=== PATIENT | male | born 1930 | race Caucasian/White ===

== ENCOUNTER 2017-02-14 16:42 | Emergency (ER) | payer MEDICARE, OTHER ==
[~2017-02-14] VITALS: Ht 167.6 cm; Wt 79.5 kg
[~2017-02-14 16:42] MED LIST: ARICEPT10 MG PO; ASPIRIN 81M81 MG/TA2 PO; CIPRO 500MG TA500 MG PO; FLAGYL500 MG PO; FLOMAX 0.40.4 MG/CAP PO; FOLIC ACID 11 MG/TA1 PO; GLUCOTROL 5M5 MG/TAB PO; LEVEMIR100 U/ML SQ; NAMENDA 10MG TA10 MG PO; NEURONTIN300 MG/CAP PO; NORVASC 10MG10 MG PO; OMNICEF 300MG300 MG PO; PHENERGAN 25 TA25 MG PO; PRINIVIL5 MG PO; SYNTHROID0.05 MG/TA PO; URECHOLINE 25MG25 MG PO; VITAMIN B-1000 MCG/T PO; VITAMIN D1000 IU PO; ZOLOFT 50MG50 MG PO
[2017-02-14 16:44] VITALS: BP 144/55; TEMP 97.7
[2017-02-14 17:35] LABS: BASO # 0.1 (0.0-0.2); BASO % 0.7 % (0.0-2.0); EOS # 0.2 (0.0-0.7); GRAN # 5.1 (1.4-6.5); LYMPH # 1.1 (1.2-3.4); LYMPH % 15.8 % (20.0-51.0); MEAN CELL VOLUME 84 fl (80.0-100.0); MEAN CORPUSCULAR HGB CONC 33 g/dl (33.0-37.0); MEAN PLATELET VOLUME 11.9 fl (7.4-10.4); MONO # 0.7 (0.1-0.6); MONO % 9.1 % (1.7-9.3); PLATELET COUNT 173 K/mm3 (130-400); RED BLOOD COUNT 3.58 M/mm3 (4.20-5.60); REDCELL DISTRIBUTION WIDTH-CV 14.4 % (11.5-14.5); WHITE BLOOD COUNT 7.2 K/mm3 (4.8-10.8)
[2017-02-14 17:36] LABS: HEMOGLOBIN 9.8 g/dl (13.5-18.0); MEAN CORPUSCULAR HEMOGLOBIN 27 pg (27.0-31.0)
[2017-02-14 17:49] LABS: ADJUSTED CALCIUM 9.3 mg/dL (8.4-10.2); ALBUMIN 3.1 gm/dL (3.5-5.0); BILIRUBIN,TOTAL 0.7 mg/dL (0.0-1.0); CALCIUM 8.6 mg/dL (8.4-10.2); CREATININE, serum 1.2 mg/dL (0.66-1.25); POTASSIUM 4.6 mmol/L (3.4-5.0); TOTAL PROTEIN 6.3 gm/dL (6.4-8.2)
[2017-02-14 18:19] LABS: THYROID STIMULATING HORMONE 3.07 uIU/mL (0.465-4.680)
[2017-02-14 19:10] VITALS: PULSE 74
[2017-03-21] MEDS ORDERED: MACROBID 1100 MG/CAP PO (10:33)
[2017-07-28] MEDS ORDERED: PREDNISONE10 MG PO (11:45)
[2017-07-28] MEDS ORDERED: DOXYCYCLINE 10100 MG PO (11:45)
[2017-07-28] MEDS ORDERED: FERROUS SU325 MG/TAB PO (11:49)
[2017-07-28] MEDS ORDERED: FLOMAX 0.40.4 MG/CAP PO (11:50)
[2017-07-28] MEDS ORDERED: ULTRAM 50MG TAB50 MG PO (18:10)
[2017-07-28] MEDS ORDERED: NOVOLOGMIX70/30 SQ ×2 (18:34→18:37)
== END 2017-02-14 19:02 | disposition home or self-care (01) ==
LOC: COL.ER 16:42
PROVIDERS: Family Medicine
DX: L89.619 Pressure ulcer of right heel, unspecified stage (principal); L89.319 Pressure ulcer of right buttock, unspecified stage; G62.9 Polyneuropathy, unspecified; L97.829 Non-pressure chronic ulcer of other part of left lower leg with unspecified severity; L97.819 Non-pressure chronic ulcer of other part of right lower leg with unspecified severity; D64.9 Anemia, unspecified; E11.9 Type 2 diabetes mellitus without complications; Z79.84 Long term (current) use of oral hypoglycemic drugs; R60.0 Localized edema

== ENCOUNTER → 2017-03-02 | Outpatient (CLI) | payer MEDICARE, OTHER ==
[~2017-03-02] MED LIST changes: +BACTRIM DS 8001 TAB PO; +Ciprofloxacin PO; +DOXYCYCLINE 10100 MG PO; +FERROUS SU325 MG/TAB PO; +LEVAQUIN 5500 MG/TA1 PO; +MACROBID 1100 MG/CAP PO; +MYCOSTATIN100000 U/G TP; +NOVOLOG FLEX100 U/ML SQ; +NOVOLOGMIX70/30 SQ; +PREDNISONE10 MG PO; +ULTRAM 50MG TAB50 MG PO; +ZOLOFT 25MG25 MG PO
== END ==
LOC: WCC 09:00
DX: E11.621 Type 2 diabetes mellitus with foot ulcer (principal); L97.419 Non-pressure chronic ulcer of right heel and midfoot with unspecified severity; I87.2 Venous insufficiency (chronic) (peripheral); L97.929 Non-pressure chronic ulcer of unspecified part of left lower leg with unspecified severity
CPT/HCPCS: 13919; 17717; 27510; A6197; A6212; G0463

== ENCOUNTER 2017-03-06 15:07 | Inpatient (IN) | payer MEDICARE, OTHER ==
[~2017-03-06] VITALS: Ht 167.6 cm; Wt 80.6 kg
[~2017-03-06 15:07] MED LIST changes: -BACTRIM DS 8001 TAB PO; -Ciprofloxacin PO; -DOXYCYCLINE 10100 MG PO; -FERROUS SU325 MG/TAB PO; -LEVAQUIN 5500 MG/TA1 PO; -MACROBID 1100 MG/CAP PO; -MYCOSTATIN100000 U/G TP; -NOVOLOG FLEX100 U/ML SQ; -NOVOLOGMIX70/30 SQ; -PREDNISONE10 MG PO; -ULTRAM 50MG TAB50 MG PO; -ZOLOFT 25MG25 MG PO
[2017-03-06 16:02] LABS: BASO # 0.1 (0.0-0.2); BASO % 0.7 % (0.0-2.0); EOS # 0.3 (0.0-0.7); EOS % 3.2 % (0-4.0); GRAN # 7.2 (1.4-6.5); GRAN % 78.9 % (42.2-75.2); LYMPH # 0.8 (1.2-3.4); LYMPH % 8.9 % (20.0-51.0); MEAN CELL VOLUME 84 fl (80.0-100.0); MEAN CORPUSCULAR HGB CONC 33 g/dl (33.0-37.0); MEAN PLATELET VOLUME 12.3 fl (7.4-10.4); MONO # 0.7 (0.1-0.6); MONO % 7.5 % (1.7-9.3); PLATELET COUNT 215 K/mm3 (130-400); RED BLOOD COUNT 4.07 M/mm3 (4.20-5.60); REDCELL DISTRIBUTION WIDTH-CV 14.2 % (11.5-14.5); WHITE BLOOD COUNT 9.1 K/mm3 (4.8-10.8)
[2017-03-06 16:06] LABS: HEMATOCRIT 34.2 % (42.0-52.0); HEMOGLOBIN 11.1 g/dl (13.5-18.0); MEAN CORPUSCULAR HEMOGLOBIN 27 pg (27.0-31.0)
[2017-03-06] MEDS ORDERED: ZOLOFT 25MG25 MG PO (16:07)
[2017-03-06 16:18] LABS: INR 1.2 (0.8-3.0); PROTHROMBIN TIME 13.5 SECONDS (9.7-12.8)
[2017-03-06 16:27] LABS: ADJUSTED CALCIUM 9.5 mg/dL (8.4-10.2); ALANINE AMINOTRANSFERASE 27 U/L (21-72); ALBUMIN 3.5 gm/dL (3.5-5.0); ALKALINE PHOSPHATASE 119 U/L (50-136); ANION GAP 12 mmol/L (7-16); BILIRUBIN,TOTAL 0.9 mg/dL (0.0-1.0); BLOOD UREA NITROGEN 38 mg/dL (9-20); CALCIUM 9.1 mg/dL (8.4-10.2); CARBON DIOXIDE 22 mmol/L (22-30); CHLORIDE 103 mmol/L (98-107); CREATINE KINASE 46 U/L (55-170); CREATININE, serum 1.44 mg/dL (0.66-1.25); GLUCOSE 302 mg/dL (74-106); LIPASE 138 U/L (23-300); POTASSIUM 4.9 mmol/L (3.4-5.0); SODIUM 138 mmol/L (137-145); TOTAL PROTEIN 7.1 gm/dL (6.4-8.2)
[2017-03-06 16:37] LABS: B-TYPE NATRIURETIC PEPTIDE 334 pg/mL (0-450)
[2017-03-06 16:39] LABS: TROPONIN-I < 0.012 ng/mL (0.000-0.034)
[2017-03-06 17:51] LABS: PH 5 (5-8); SQUAMOUS EPITHELIAL None Seen /hpf; URINE APPEARANCE Clear; URINE BACTERIA None Seen /hpf; URINE BILIRUBIN Negative (NEGATIVE); URINE BLOOD Negative (NEGATIVE); URINE COLOR Yellow; URINE GLUCOSE 3+ (NEGATIVE); URINE KETONE Negative (NEGATIVE); URINE RBC 0-2 /hpf; URINE UROBILINOGEN Negative (NEGATIVE); URINE WBC 0-2 /hpf
[2017-03-06 20:48] VITALS: BP 135/58; PULSE 67; TEMP 98.5
[2017-03-06] MEDS ORDERED: NAMENDA 10MG TA10 MG PO (21:10)
[2017-03-06 23:01] VITALS: BP 139/74; PULSE 90; TEMP 98.1
[2017-03-07 04:32] VITALS: BP 162/45; PULSE 67; TEMP 98.6
[2017-03-07 07:16] LABS: BASO # 0.1 (0.0-0.2); BASO % 0.8 % (0.0-2.0); EOS # 0.3 (0.0-0.7); EOS % 4.7 % (0-4.0); GRAN # 4.6 (1.4-6.5); GRAN % 64.3 % (42.2-75.2); LYMPH # 1.5 (1.2-3.4); LYMPH % 20.8 % (20.0-51.0); MEAN CELL VOLUME 84 fl (80.0-100.0); MEAN CORPUSCULAR HGB CONC 33 g/dl (33.0-37.0); MEAN PLATELET VOLUME 12.8 fl (7.4-10.4); MONO # 0.7 (0.1-0.6); MONO % 9.1 % (1.7-9.3); PLATELET COUNT 193 K/mm3 (130-400); RED BLOOD COUNT 3.53 M/mm3 (4.20-5.60); REDCELL DISTRIBUTION WIDTH-CV 14.4 % (11.5-14.5); WHITE BLOOD COUNT 7.2 K/mm3 (4.8-10.8)
[2017-03-07 07:35] LABS: CALCIUM 8.8 mg/dL (8.4-10.2); CREATININE, serum 1.18 mg/dL (0.66-1.25); POTASSIUM 4.2 mmol/L (3.4-5.0)
[2017-03-07 07:49] LABS: HEMATOCRIT 29.7 % (42.0-52.0); HEMOGLOBIN 9.8 g/dl (13.5-18.0); MEAN CORPUSCULAR HEMOGLOBIN 28 pg (27.0-31.0)
[2017-03-07 07:58] VITALS: BP 151/56; PULSE 66; TEMP 98
[2017-03-07 11:58] VITALS: BP 125/89; PULSE 63; TEMP 97.8
[2017-03-07 16:00] VITALS: BP 125/89; PULSE 63; TEMP 97.8
[2017-03-07 19:15] VITALS: BP 147/50; PULSE 69; TEMP 98.3
[2017-03-07 22:51] VITALS: BP 138/54; PULSE 75; TEMP 98.6
[2017-03-08 04:07] VITALS: BP 105/66; PULSE 88; TEMP 97.8
[2017-03-08 08:30] VITALS: BP 141/53; PULSE 74; TEMP 97.7
[2017-03-08 13:01] VITALS: BP 152/56; PULSE 98; TEMP 97.5
[2017-03-08 15:53] VITALS: BP 151/50; PULSE 82; TEMP 98.8
[2017-03-21] MEDS ORDERED: MACROBID 1100 MG/CAP PO (10:33)
[2017-07-28] MEDS ORDERED: PREDNISONE10 MG PO (11:45)
[2017-07-28] MEDS ORDERED: DOXYCYCLINE 10100 MG PO (11:45)
[2017-07-28] MEDS ORDERED: FERROUS SU325 MG/TAB PO (11:49)
[2017-07-28] MEDS ORDERED: FLOMAX 0.40.4 MG/CAP PO (11:50)
[2017-07-28] MEDS ORDERED: ULTRAM 50MG TAB50 MG PO (18:10)
[2017-07-28] MEDS ORDERED: NOVOLOGMIX70/30 SQ ×2 (18:34→18:37)
== END 2017-03-08 18:00 | disposition home or self-care (01) | DRG 683 ==
LOC: COL.ER 15:07 → MEDICAL 18:14
PROVIDERS: Emergency Medicine; Nurse Practitioner Family; Urology
PROC: 0TPB8DZ Removal of Intraluminal Device from Bladder, Via Natural or Artificial Opening Endoscopic (ICD-10-PCS; principal; 2017-03-08 13:00)
DX: N17.9 Acute kidney failure, unspecified (principal); N13.8 Other obstructive and reflux uropathy; L97.419 Non-pressure chronic ulcer of right heel and midfoot with unspecified severity; N39.498 Other specified urinary incontinence; I10 Essential (primary) hypertension; F03.90 Unspecified dementia, unspecified severity, without behavioral disturbance, psychotic disturbance, mood disturbance, and anxiety; N40.1 Benign prostatic hyperplasia with lower urinary tract symptoms; R33.8 Other retention of urine; E11.621 Type 2 diabetes mellitus with foot ulcer; E86.0 Dehydration; L89.152 Pressure ulcer of sacral region, stage 2; E11.65 Type 2 diabetes mellitus with hyperglycemia; D64.9 Anemia, unspecified
CPT/HCPCS: 99223-AI; 99239; J1644; J1815; J7030

== ENCOUNTER → 2017-03-11 | Outpatient (CLI) | payer MEDICARE, OTHER ==
[~2017-03-11] MED LIST changes: +BACTRIM DS 8001 TAB PO; +Ciprofloxacin PO; +DOXYCYCLINE 10100 MG PO; +FERROUS SU325 MG/TAB PO; +LEVAQUIN 5500 MG/TA1 PO; +MACROBID 1100 MG/CAP PO; +MYCOSTATIN100000 U/G TP; +NOVOLOG FLEX100 U/ML SQ; +NOVOLOGMIX70/30 SQ; +PREDNISONE10 MG PO; +ULTRAM 50MG TAB50 MG PO; +ZOLOFT 25MG25 MG PO
== END ==
LOC: WCC 08:30
DX: E11.621 Type 2 diabetes mellitus with foot ulcer (principal); I87.2 Venous insufficiency (chronic) (peripheral); L89.619 Pressure ulcer of right heel, unspecified stage
CPT/HCPCS: 13919; 17717; 21064; A6021; A6212; G0463

== ENCOUNTER 2017-03-17 18:55 | Emergency (ER) | payer MEDICARE, OTHER ==
[~2017-03-17] VITALS: Ht 165.1 cm; Wt 77.3 kg
[~2017-03-17 18:55] MED LIST changes: -BACTRIM DS 8001 TAB PO; -Ciprofloxacin PO; -DOXYCYCLINE 10100 MG PO; -FERROUS SU325 MG/TAB PO; -LEVAQUIN 5500 MG/TA1 PO; -MACROBID 1100 MG/CAP PO; -MYCOSTATIN100000 U/G TP; -NOVOLOG FLEX100 U/ML SQ; -NOVOLOGMIX70/30 SQ; -PREDNISONE10 MG PO; -ULTRAM 50MG TAB50 MG PO
[2017-03-17 18:59] VITALS: TEMP 98.1
[2017-03-17 19:56] LABS: BASO # 0.1 (0.0-0.2); BASO % 0.5 % (0.0-2.0); EOS # 0.4 (0.0-0.7); EOS % 3.2 % (0-4.0); GRAN # 7.8 (1.4-6.5); GRAN % 71.1 % (42.2-75.2); LYMPH # 1.6 (1.2-3.4); LYMPH % 14.8 % (20.0-51.0); MEAN CELL VOLUME 83 fl (80.0-100.0); MEAN CORPUSCULAR HGB CONC 34 g/dl (33.0-37.0); MEAN PLATELET VOLUME 12.5 fl (7.4-10.4); MONO # 1.1 (0.1-0.6); MONO % 9.9 % (1.7-9.3); PLATELET COUNT 201 K/mm3 (130-400); RED BLOOD COUNT 3.83 M/mm3 (4.20-5.60); REDCELL DISTRIBUTION WIDTH-CV 14.2 % (11.5-14.5)
[2017-03-17 19:57] LABS: HEMATOCRIT 31.7 % (42.0-52.0); HEMOGLOBIN 10.7 g/dl (13.5-18.0); MEAN CORPUSCULAR HEMOGLOBIN 28 pg (27.0-31.0)
[2017-03-17 20:05] LABS: ALBUMIN 3.3 gm/dL (3.5-5.0); CALCIUM 8.4 mg/dL (8.4-10.2); CREATININE, serum 1.63 mg/dL (0.66-1.25); POTASSIUM 4.7 mmol/L (3.4-5.0); TOTAL PROTEIN 6.7 gm/dL (6.4-8.2)
[2017-03-17 21:12] LABS: PH 5 (5-8); SQUAMOUS EPITHELIAL 0-2 /hpf; URINE APPEARANCE Hazy; URINE BACTERIA None Seen /hpf; URINE BILIRUBIN Negative (NEGATIVE); URINE BLOOD Negative (NEGATIVE); URINE COLOR Yellow; URINE GLUCOSE 3+ (NEGATIVE); URINE KETONE Negative (NEGATIVE); URINE RBC 0-2 /hpf; URINE UROBILINOGEN Negative (NEGATIVE)
[2017-03-17] MEDS ORDERED: BACTRIM DS 8001 TAB PO (21:39)
[2017-03-17 22:15] VITALS: BP 167/82; PULSE 86
[2017-03-21] MEDS ORDERED: MACROBID 1100 MG/CAP PO (10:33)
[2017-07-28] MEDS ORDERED: PREDNISONE10 MG PO (11:45)
[2017-07-28] MEDS ORDERED: DOXYCYCLINE 10100 MG PO (11:45)
[2017-07-28] MEDS ORDERED: FERROUS SU325 MG/TAB PO (11:49)
[2017-07-28] MEDS ORDERED: FLOMAX 0.40.4 MG/CAP PO (11:50)
[2017-07-28] MEDS ORDERED: ULTRAM 50MG TAB50 MG PO (18:10)
[2017-07-28] MEDS ORDERED: NOVOLOGMIX70/30 SQ ×2 (18:34→18:37)
== END 2017-03-17 22:15 | disposition home or self-care (01) ==
LOC: COL.ER 18:55
PROVIDERS: Emergency Medicine
DX: N39.0 Urinary tract infection, site not specified (principal); R33.9 Retention of urine, unspecified; E11.9 Type 2 diabetes mellitus without complications; F03.90 Unspecified dementia, unspecified severity, without behavioral disturbance, psychotic disturbance, mood disturbance, and anxiety

== ENCOUNTER 2017-03-21 20:39 | Emergency (ER) | payer MEDICARE, OTHER ==
[~2017-03-21] VITALS: Ht 167.6 cm; Wt 81.8 kg
[~2017-03-21 20:39] MED LIST changes: +BACTRIM DS 8001 TAB PO; +MACROBID 1100 MG/CAP PO
[2017-03-21 20:44] VITALS: TEMP 97.7
[2017-03-21 22:01] VITALS: BP 135/70; PULSE 92
[2017-07-28] MEDS ORDERED: DOXYCYCLINE 10100 MG PO (11:45)
[2017-07-28] MEDS ORDERED: PREDNISONE10 MG PO (11:45)
[2017-07-28] MEDS ORDERED: FERROUS SU325 MG/TAB PO (11:49)
[2017-07-28] MEDS ORDERED: FLOMAX 0.40.4 MG/CAP PO (11:50)
[2017-07-28] MEDS ORDERED: ULTRAM 50MG TAB50 MG PO (18:10)
[2017-07-28] MEDS ORDERED: NOVOLOGMIX70/30 SQ ×2 (18:34→18:37)
== END 2017-03-21 22:05 | disposition home or self-care (01) ==
LOC: COL.ER 20:39
DX: T83.098A Other mechanical complication of other urinary catheter, initial encounter (principal); N40.1 Benign prostatic hyperplasia with lower urinary tract symptoms; R33.8 Other retention of urine; E11.9 Type 2 diabetes mellitus without complications; I10 Essential (primary) hypertension; F03.90 Unspecified dementia, unspecified severity, without behavioral disturbance, psychotic disturbance, mood disturbance, and anxiety; Z79.4 Long term (current) use of insulin

== ENCOUNTER → 2017-03-24 | Outpatient (CLI) | payer MEDICARE, OTHER ==
[~2017-03-24] MED LIST changes: +Ciprofloxacin PO; +DOXYCYCLINE 10100 MG PO; +FERROUS SU325 MG/TAB PO; +LEVAQUIN 5500 MG/TA1 PO; +MYCOSTATIN100000 U/G TP; +NOVOLOG FLEX100 U/ML SQ; +NOVOLOGMIX70/30 SQ; +PREDNISONE10 MG PO; +ULTRAM 50MG TAB50 MG PO
== END ==
LOC: WCC 03-18 11:18
DX: E11.621 Type 2 diabetes mellitus with foot ulcer (principal); I87.2 Venous insufficiency (chronic) (peripheral); L97.909 Non-pressure chronic ulcer of unspecified part of unspecified lower leg with unspecified severity; L89.619 Pressure ulcer of right heel, unspecified stage
CPT/HCPCS: 13919; 17040; 17717; 27516; A6207; A6212; Q4106

== ENCOUNTER → 2017-03-31 | Outpatient (CLI) | payer MEDICARE, OTHER | LOC: WCC 09:20 | DX: E11.621 Type 2 diabetes mellitus with foot ulcer (principal) | CPT/HCPCS: 13919; 17717; 27510; 27516; A6197; A6207; A6212; Q4106 ==

== ENCOUNTER 2017-04-06 12:46 | Emergency (ER) | payer MEDICARE, OTHER ==
[~2017-04-06] VITALS: Ht 165.1 cm; Wt 77.3 kg
[~2017-04-06 12:46] MED LIST changes: -Ciprofloxacin PO; -DOXYCYCLINE 10100 MG PO; -FERROUS SU325 MG/TAB PO; -LEVAQUIN 5500 MG/TA1 PO; -MYCOSTATIN100000 U/G TP; -NOVOLOG FLEX100 U/ML SQ; -NOVOLOGMIX70/30 SQ; -PREDNISONE10 MG PO; -ULTRAM 50MG TAB50 MG PO
[2017-04-06 12:49] VITALS: TEMP 97.2
[2017-04-06 13:33] LABS: VENOUS BLOOD GAS BE -1.3 (-4-4); VENOUS BLOOD GAS SAO2 79.9 % (60-80); VENOUS BLOOD GAS SITE VENIPUNCTURE
[2017-04-06 13:44] LABS: BASO # 0.1 (0.0-0.2); BASO % 0.7 % (0.0-2.0); EOS # 0.3 (0.0-0.7); GRAN # 5.1 (1.4-6.5); GRAN % 71.1 % (42.2-75.2); LYMPH # 1.1 (1.2-3.4); LYMPH % 15.2 % (20.0-51.0); MEAN CELL VOLUME 83 fl (80.0-100.0); MEAN CORPUSCULAR HGB CONC 33 g/dl (33.0-37.0); MEAN PLATELET VOLUME 12.1 fl (7.4-10.4); MONO # 0.6 (0.1-0.6); MONO % 8.6 % (1.7-9.3); PLATELET COUNT 185 K/mm3 (130-400); RED BLOOD COUNT 4.09 M/mm3 (4.20-5.60); REDCELL DISTRIBUTION WIDTH-CV 14.1 % (11.5-14.5); WHITE BLOOD COUNT 7.2 K/mm3 (4.8-10.8)
[2017-04-06 13:50] LABS: HEMATOCRIT 33.9 % (42.0-52.0); HEMOGLOBIN 11.1 g/dl (13.5-18.0); MEAN CORPUSCULAR HEMOGLOBIN 27 pg (27.0-31.0)
[2017-04-06 14:02] LABS: ADJUSTED CALCIUM 9.4 mg/dL (8.4-10.2); ALANINE AMINOTRANSFERASE 25 U/L (21-72); ALKALINE PHOSPHATASE 149 U/L (50-136); ANION GAP 10 mmol/L (7-16); BILIRUBIN,TOTAL 0.9 mg/dL (0.0-1.0); BLOOD UREA NITROGEN 39 mg/dL (9-20); CALCIUM 8.6 mg/dL (8.4-10.2); CARBON DIOXIDE 21 mmol/L (22-30); CHLORIDE 99 mmol/L (98-107); CREATININE, serum 1.11 mg/dL (0.66-1.25); MAGNESIUM 1.5 mg/dL (1.6-2.3); SODIUM 130 mmol/L (137-145); TOTAL PROTEIN 6.5 gm/dL (6.4-8.2)
[2017-04-06 14:06] LABS: GLUCOSE 558 mg/dL (74-106)
[2017-04-06 14:46] LABS: PH 5 (5-8); SQUAMOUS EPITHELIAL None Seen /hpf; URINE APPEARANCE Clear; URINE BACTERIA Rare /hpf; URINE BILIRUBIN Negative (NEGATIVE); URINE BLOOD 1+ (NEGATIVE); URINE COLOR Yellow; URINE GLUCOSE 3+ (NEGATIVE); URINE KETONE Negative (NEGATIVE); URINE UROBILINOGEN Negative (NEGATIVE); URINE WBC 0-2 /hpf
[2017-04-06 15:53] VITALS: BP 148/72; PULSE 73
[2017-07-28] MEDS ORDERED: PREDNISONE10 MG PO (11:45)
[2017-07-28] MEDS ORDERED: DOXYCYCLINE 10100 MG PO (11:45)
[2017-07-28] MEDS ORDERED: FERROUS SU325 MG/TAB PO (11:49)
[2017-07-28] MEDS ORDERED: FLOMAX 0.40.4 MG/CAP PO (11:50)
[2017-07-28] MEDS ORDERED: ULTRAM 50MG TAB50 MG PO (18:10)
[2017-07-28] MEDS ORDERED: NOVOLOGMIX70/30 SQ ×2 (18:34→18:37)
== END 2017-04-06 15:56 | disposition home or self-care (01) ==
LOC: COL.ER 12:46
PROVIDERS: Emergency Medicine
DX: E11.65 Type 2 diabetes mellitus with hyperglycemia (principal); I10 Essential (primary) hypertension; F03.90 Unspecified dementia, unspecified severity, without behavioral disturbance, psychotic disturbance, mood disturbance, and anxiety; M19.90 Unspecified osteoarthritis, unspecified site; E03.9 Hypothyroidism, unspecified; Z79.4 Long term (current) use of insulin; Z79.84 Long term (current) use of oral hypoglycemic drugs; Z87.891 Personal history of nicotine dependence; Z87.440 Personal history of urinary (tract) infections; Z96.653 Presence of artificial knee joint, bilateral; Z90.49 Acquired absence of other specified parts of digestive tract; Z98.890 Other specified postprocedural states
CPT/HCPCS: J1815; J7030

== ENCOUNTER → 2017-04-07 | Outpatient (CLI) | payer MEDICARE, OTHER ==
[~2017-04-07] MED LIST changes: +Ciprofloxacin PO; +DOXYCYCLINE 10100 MG PO; +FERROUS SU325 MG/TAB PO; +LEVAQUIN 5500 MG/TA1 PO; +MYCOSTATIN100000 U/G TP; +NOVOLOG FLEX100 U/ML SQ; +NOVOLOGMIX70/30 SQ; +PREDNISONE10 MG PO; +ULTRAM 50MG TAB50 MG PO
== END ==
LOC: WCC 08:51
DX: E11.621 Type 2 diabetes mellitus with foot ulcer (principal); L97.419 Non-pressure chronic ulcer of right heel and midfoot with unspecified severity
CPT/HCPCS: 27510; A6197; G0463

== ENCOUNTER 2017-04-13 12:36 | Inpatient (IN) | payer MEDICARE, OTHER ==
[~2017-04-13] VITALS: Ht 170.2 cm; Wt 81.8 kg
[~2017-04-13 12:36] MED LIST changes: -Ciprofloxacin PO; -DOXYCYCLINE 10100 MG PO; -FERROUS SU325 MG/TAB PO; -LEVAQUIN 5500 MG/TA1 PO; -MYCOSTATIN100000 U/G TP; -NOVOLOG FLEX100 U/ML SQ; -NOVOLOGMIX70/30 SQ; -PREDNISONE10 MG PO; -ULTRAM 50MG TAB50 MG PO
[2017-04-13 13:24] LABS: BASO # 0.1 (0.0-0.2); BASO % 0.5 % (0.0-2.0); EOS # 0.3 (0.0-0.7); GRAN # 8.3 (1.4-6.5); GRAN % 76.3 % (42.2-75.2); LYMPH # 1.2 (1.2-3.4); LYMPH % 10.9 % (20.0-51.0); MEAN CELL VOLUME 83 fl (80.0-100.0); MEAN CORPUSCULAR HGB CONC 32 g/dl (33.0-37.0); MONO # 0.9 (0.1-0.6); MONO % 8.6 % (1.7-9.3); PLATELET COUNT 211 K/mm3 (130-400); RED BLOOD COUNT 3.95 M/mm3 (4.20-5.60); REDCELL DISTRIBUTION WIDTH-CV 14.4 % (11.5-14.5); WHITE BLOOD COUNT 10.8 K/mm3 (4.8-10.8)
[2017-04-13 13:25] LABS: HEMATOCRIT 32.6 % (42.0-52.0); HEMOGLOBIN 10.5 g/dl (13.5-18.0); MEAN CORPUSCULAR HEMOGLOBIN 27 pg (27.0-31.0)
[2017-04-13 13:35] LABS: ADJUSTED CALCIUM 9.4 mg/dL (8.4-10.2); ALANINE AMINOTRANSFERASE 24 U/L (21-72); ALBUMIN 3.1 gm/dL (3.5-5.0); ALKALINE PHOSPHATASE 114 U/L (50-136); ANION GAP 13 mmol/L (7-16); BILIRUBIN,TOTAL 1.3 mg/dL (0.0-1.0); BLOOD UREA NITROGEN 33 mg/dL (9-20); CALCIUM 8.7 mg/dL (8.4-10.2); CARBON DIOXIDE 20 mmol/L (22-30); CHLORIDE 107 mmol/L (98-107); CREATININE, serum 1.18 mg/dL (0.66-1.25); GLUCOSE 87 mg/dL (74-106); POTASSIUM 4.3 mmol/L (3.4-5.0); SODIUM 140 mmol/L (137-145); TOTAL PROTEIN 6.8 gm/dL (6.4-8.2)
[2017-04-13 13:50] LABS: TROPONIN-I < 0.012 ng/mL (0.000-0.034)
[2017-04-13] MEDS ORDERED: URECHOLINE 25MG25 MG PO (14:05)
[2017-04-13 14:56] LABS: PH 5 (5-8); SQUAMOUS EPITHELIAL 0-2 /hpf; URINE APPEARANCE Cloudy; URINE BACTERIA Many /hpf; URINE BILIRUBIN Negative (NEGATIVE); URINE BLOOD 2+ (NEGATIVE); URINE COLOR Yellow; URINE GLUCOSE Negative (NEGATIVE); URINE KETONE Negative (NEGATIVE); URINE RBC 20-50 /hpf
[2017-04-13 14:58] LABS: URINE WBC >50 /hpf
[2017-04-13 16:11] VITALS: BP 141/80; PULSE 70
[2017-04-13 17:33] VITALS: BP 150/59; TEMP 98.2
[2017-04-13 20:24] VITALS: BP 138/74; PULSE 80; TEMP 98.3
[2017-04-13 20:25] VITALS: BP 127/60; PULSE 81
[2017-04-13 20:28] VITALS: BP 134/57; PULSE 95
[2017-04-14] VITALS (12 sets, daily range): BP systolic 107–154; BP diastolic 50–693; PULSE 65–105; TEMP 97–99.4
[2017-04-15] VITALS (10 sets, daily range): BP systolic 93–185; BP diastolic 38–72; PULSE 55–89; TEMP 97.2–98.7
[2017-04-16 01:50] VITALS: BP 151/64; PULSE 84; TEMP 99.2
[2017-04-16 06:31] VITALS: BP 140/57; PULSE 79; TEMP 97.4
[2017-04-16 10:12] VITALS: BP 170/74; PULSE 78; TEMP 98.7
[2017-04-16 11:30] LABS: ADJUSTED CALCIUM 9.4 mg/dL (8.4-10.2); ALBUMIN 2.9 gm/dL (3.5-5.0); CALCIUM 8.5 mg/dL (8.4-10.2); CREATININE, serum 1.12 mg/dL (0.66-1.25); POTASSIUM 4.1 mmol/L (3.4-5.0); TOTAL PROTEIN 6.5 gm/dL (6.4-8.2)
[2017-04-16 11:39] LABS: MEAN CELL VOLUME 83 fl (80.0-100.0); MEAN CORPUSCULAR HGB CONC 33 g/dl (33.0-37.0); MEAN PLATELET VOLUME 12.1 fl (7.4-10.4); PLATELET COUNT 251 K/mm3 (130-400); REDCELL DISTRIBUTION WIDTH-CV 14.3 % (11.5-14.5); WHITE BLOOD COUNT 13.9 K/mm3 (4.8-10.8)
[2017-04-16 11:44] LABS: ADD PATHOLOGY DIFF REVIEW NO; HEMATOCRIT 32.2 % (42.0-52.0); HEMOGLOBIN 10.5 g/dl (13.5-18.0); MEAN CORPUSCULAR HEMOGLOBIN 27 pg (27.0-31.0)
[2017-04-16 12:42] LABS: ANISOCYTOSIS 1+; BAND 7 % (0-10); EOSINOPHIL 2 % (0-4); NEUTROPHILS 72 % (42.0-75.2); TOTAL CELLS COUNTED 100
[2017-04-16 12:43] LABS: PLATELET ESTIMATE NORMAL (NORMAL)
[2017-04-16 12:56] VITALS: BP 161/58; PULSE 77; TEMP 97.9
[2017-04-16 16:48] VITALS: BP 140/70; PULSE 82; TEMP 97.2
[2017-04-16 21:13] VITALS: BP 134/81; PULSE 86; TEMP 98.4
[2017-04-17 02:41] VITALS: BP 129/68; PULSE 84; TEMP 98.3
[2017-04-17 05:48] VITALS: BP 141/60; PULSE 79; TEMP 98.2
[2017-04-17 09:52] VITALS: BP 107/54; PULSE 82; TEMP 98.3
[2017-04-17] MEDS ORDERED: Ciprofloxacin PO (12:27)
[2017-04-17 13:22] VITALS: BP 149/59; PULSE 87; TEMP 99
[2017-04-17 13:44] LABS: BASO # 0.1 (0.0-0.2); BASO % 0.4 % (0.0-2.0); EOS # 0.2 (0.0-0.7); EOS % 1.8 % (0-4.0); GRAN % 73.6 % (42.2-75.2); LYMPH # 1.7 (1.2-3.4); LYMPH % 12.8 % (20.0-51.0); MEAN CELL VOLUME 83 fl (80.0-100.0); MEAN CORPUSCULAR HGB CONC 32 g/dl (33.0-37.0); MEAN PLATELET VOLUME 12.1 fl (7.4-10.4); MONO # 1.4 (0.1-0.6); MONO % 10.7 % (1.7-9.3); PLATELET COUNT 273 K/mm3 (130-400); RED BLOOD COUNT 3.94 M/mm3 (4.20-5.60); REDCELL DISTRIBUTION WIDTH-CV 14.5 % (11.5-14.5); WHITE BLOOD COUNT 13.5 K/mm3 (4.8-10.8)
[2017-04-17 13:45] LABS: HEMATOCRIT 32.8 % (42.0-52.0); HEMOGLOBIN 10.5 g/dl (13.5-18.0); MEAN CORPUSCULAR HEMOGLOBIN 27 pg (27.0-31.0)
[2017-04-17 15:33] VITALS: BP 149/59; PULSE 87; TEMP 99
[2017-07-28] MEDS ORDERED: PREDNISONE10 MG PO (11:45)
[2017-07-28] MEDS ORDERED: DOXYCYCLINE 10100 MG PO (11:45)
[2017-07-28] MEDS ORDERED: FERROUS SU325 MG/TAB PO (11:49)
[2017-07-28] MEDS ORDERED: FLOMAX 0.40.4 MG/CAP PO (11:50)
[2017-07-28] MEDS ORDERED: ULTRAM 50MG TAB50 MG PO (18:10)
[2017-07-28] MEDS ORDERED: NOVOLOGMIX70/30 SQ ×2 (18:34→18:37)
== END 2017-04-17 17:02 | DRG 985 ==
LOC: COL.ER 12:36 → MEDICAL 16:32 → SURG 04-14 14:15 → MEDICAL 04-14 14:15 → SURG 04-15 15:07
PROVIDERS: Internal Medicine; Nurse Practitioner; Urology
PROC: 0VB08ZZ Excision of Prostate, Via Natural or Artificial Opening Endoscopic (ICD-10-PCS; principal; 2017-04-15 11:15)
DX: I95.1 Orthostatic hypotension (principal); N39.0 Urinary tract infection, site not specified; E44.0 Moderate protein-calorie malnutrition; E11.42 Type 2 diabetes mellitus with diabetic polyneuropathy; F03.90 Unspecified dementia, unspecified severity, without behavioral disturbance, psychotic disturbance, mood disturbance, and anxiety; I10 Essential (primary) hypertension; N40.1 Benign prostatic hyperplasia with lower urinary tract symptoms; N39.498 Other specified urinary incontinence; R33.8 Other retention of urine; Z87.891 Personal history of nicotine dependence
CPT/HCPCS: 99232-AI; 99233-AI; 99239; G0378; J0696; J0744; J1610; J1815; J1956; J2250; J3010; J7030; J7040

== ENCOUNTER → 2017-05-19 | Outpatient (CLI) | payer MEDICARE, OTHER ==
[~2017-05-19] MED LIST changes: +Ciprofloxacin PO; +DOXYCYCLINE 10100 MG PO; +FERROUS SU325 MG/TAB PO; +LEVAQUIN 5500 MG/TA1 PO; +MYCOSTATIN100000 U/G TP; +NOVOLOG FLEX100 U/ML SQ; +NOVOLOGMIX70/30 SQ; +PREDNISONE10 MG PO; +ULTRAM 50MG TAB50 MG PO
== END ==
LOC: WCC 04-14 08:45
DX: E11.621 Type 2 diabetes mellitus with foot ulcer (principal); L97.819 Non-pressure chronic ulcer of other part of right lower leg with unspecified severity; L97.829 Non-pressure chronic ulcer of other part of left lower leg with unspecified severity; I87.2 Venous insufficiency (chronic) (peripheral); L97.419 Non-pressure chronic ulcer of right heel and midfoot with unspecified severity
CPT/HCPCS: 13919; 17717; 27517; A6207; A6212; G0463

== ENCOUNTER 2017-05-20 18:03 | Observation (INO) | payer MEDICARE, OTHER ==
[~2017-05-20] VITALS: Ht 165.1 cm; Wt 81.8 kg
[~2017-05-20 18:03] MED LIST changes: -DOXYCYCLINE 10100 MG PO; -FERROUS SU325 MG/TAB PO; -LEVAQUIN 5500 MG/TA1 PO; -MYCOSTATIN100000 U/G TP; -NOVOLOG FLEX100 U/ML SQ; -NOVOLOGMIX70/30 SQ; -PREDNISONE10 MG PO; -ULTRAM 50MG TAB50 MG PO
[2017-05-20 18:06] VITALS: TEMP 99
[2017-05-20 19:21] LABS: BASO # 0.1 (0.0-0.2); BASO % 0.7 % (0.0-2.0); EOS # 0.5 (0.0-0.7); EOS % 6.1 % (0-4.0); GRAN # 5.1 (1.4-6.5); LYMPH # 1.5 (1.2-3.4); LYMPH % 18.1 % (20.0-51.0); MEAN CELL VOLUME 82 fl (80.0-100.0); MEAN CORPUSCULAR HGB CONC 32 g/dl (33.0-37.0); MEAN PLATELET VOLUME 12.1 fl (7.4-10.4); MONO % 12.6 % (1.7-9.3); PLATELET COUNT 216 K/mm3 (130-400); RED BLOOD COUNT 3.67 M/mm3 (4.20-5.60); REDCELL DISTRIBUTION WIDTH-CV 15.7 % (11.5-14.5); WHITE BLOOD COUNT 8.2 K/mm3 (4.8-10.8)
[2017-05-20 19:22] LABS: HEMATOCRIT 29.9 % (42.0-52.0); HEMOGLOBIN 9.7 g/dl (13.5-18.0); MEAN CORPUSCULAR HEMOGLOBIN 26 pg (27.0-31.0)
[2017-05-20 19:30] LABS: ADJUSTED CALCIUM 9.5 mg/dL (8.4-10.2); ALBUMIN 3.2 gm/dL (3.5-5.0); BILIRUBIN,TOTAL 0.6 mg/dL (0.0-1.0); CALCIUM 8.9 mg/dL (8.4-10.2); CREATININE, serum 1.51 mg/dL (0.66-1.25); POTASSIUM 4.8 mmol/L (3.4-5.0); TOTAL PROTEIN 6.8 gm/dL (6.4-8.2)
[2017-05-20] MEDS ORDERED: MYCOSTATIN100000 U/G TP (20:47)
[2017-05-20 21:37] LABS: PH 5 (5-8); SQUAMOUS EPITHELIAL None Seen /hpf; URINE APPEARANCE Clear; URINE BACTERIA None Seen /hpf; URINE BILIRUBIN Negative (NEGATIVE); URINE BLOOD 2+ (NEGATIVE); URINE COLOR Yellow; URINE GLUCOSE 3+ (NEGATIVE); URINE KETONE Negative (NEGATIVE); URINE UROBILINOGEN Negative (NEGATIVE); URINE WBC 20-50 /hpf
[2017-05-21 05:21] LABS: BASO # 0.1 (0.0-0.2); BASO % 0.7 % (0.0-2.0); EOS # 0.5 (0.0-0.7); GRAN # 4.3 (1.4-6.5); GRAN % 60.9 % (42.2-75.2); LYMPH # 1.2 (1.2-3.4); LYMPH % 17.6 % (20.0-51.0); MEAN CELL VOLUME 81 fl (80.0-100.0); MEAN CORPUSCULAR HGB CONC 32 g/dl (33.0-37.0); MEAN PLATELET VOLUME 11.8 fl (7.4-10.4); MONO # 0.9 (0.1-0.6); MONO % 13.4 % (1.7-9.3); PLATELET COUNT 209 K/mm3 (130-400); RED BLOOD COUNT 3.66 M/mm3 (4.20-5.60); REDCELL DISTRIBUTION WIDTH-CV 15.9 % (11.5-14.5)
[2017-05-21 05:22] LABS: HEMATOCRIT 29.8 % (42.0-52.0); HEMOGLOBIN 9.5 g/dl (13.5-18.0); MEAN CORPUSCULAR HEMOGLOBIN 26 pg (27.0-31.0)
[2017-05-21 05:46] LABS: ANION GAP 8 mmol/L (7-16); BLOOD UREA NITROGEN 37 mg/dL (9-20); CALCIUM 8.9 mg/dL (8.4-10.2); CARBON DIOXIDE 21 mmol/L (22-30); CHLORIDE 106 mmol/L (98-107); CREATININE, serum 1.35 mg/dL (0.66-1.25); GLUCOSE 243 mg/dL (74-106); POTASSIUM 4.4 mmol/L (3.4-5.0); SODIUM 136 mmol/L (137-145)
[2017-05-21 06:12] LABS: TROPONIN-I < 0.012 ng/mL (0.000-0.034)
[2017-05-21 06:41] LABS: TOTAL IRON BINDING CAPACITY 275 ug/dL (261-462)
[2017-05-21] MEDS ORDERED: NOVOLOG FLEX100 U/ML SQ (09:28)
[2017-05-21] MEDS ORDERED: LEVAQUIN 5500 MG/TA1 PO (09:34)
[2017-05-21 10:49] VITALS: BP 156/76; PULSE 71
[2017-07-28] MEDS ORDERED: DOXYCYCLINE 10100 MG PO (11:45)
[2017-07-28] MEDS ORDERED: PREDNISONE10 MG PO (11:45)
[2017-07-28] MEDS ORDERED: FERROUS SU325 MG/TAB PO (11:49)
[2017-07-28] MEDS ORDERED: FLOMAX 0.40.4 MG/CAP PO (11:50)
[2017-07-28] MEDS ORDERED: ULTRAM 50MG TAB50 MG PO (18:10)
[2017-07-28] MEDS ORDERED: NOVOLOGMIX70/30 SQ ×2 (18:34→18:37)
== END 2017-05-21 10:53 ==
LOC: COL.ER 18:03 → MEDICAL 22:26
PROVIDERS: Emergency Medicine; Internal Medicine
DX: L97.909 Non-pressure chronic ulcer of unspecified part of unspecified lower leg with unspecified severity (principal); N39.0 Urinary tract infection, site not specified; B95.2 Enterococcus as the cause of diseases classified elsewhere; E87.1 Hypo-osmolality and hyponatremia; D64.9 Anemia, unspecified; N17.9 Acute kidney failure, unspecified; E03.9 Hypothyroidism, unspecified; I10 Essential (primary) hypertension; F03.90 Unspecified dementia, unspecified severity, without behavioral disturbance, psychotic disturbance, mood disturbance, and anxiety; E11.40 Type 2 diabetes mellitus with diabetic neuropathy, unspecified; E11.65 Type 2 diabetes mellitus with hyperglycemia; F32.9 Major depressive disorder, single episode, unspecified; N40.1 Benign prostatic hyperplasia with lower urinary tract symptoms; N39.498 Other specified urinary incontinence; K57.30 Diverticulosis of large intestine without perforation or abscess without bleeding; E86.0 Dehydration; R33.8 Other retention of urine; R68.89 Other general symptoms and signs; R10.9 Unspecified abdominal pain; Z79.4 Long term (current) use of insulin; Z79.84 Long term (current) use of oral hypoglycemic drugs; Z90.49 Acquired absence of other specified parts of digestive tract; Z96.653 Presence of artificial knee joint, bilateral; Z87.891 Personal history of nicotine dependence
CPT/HCPCS: G0378; J0696; J1815; J1956; J7030

== ENCOUNTER → 2017-05-27 | Outpatient (CLI) | payer MEDICARE, OTHER ==
[~2017-05-27] MED LIST changes: +DOXYCYCLINE 10100 MG PO; +FERROUS SU325 MG/TAB PO; +LEVAQUIN 5500 MG/TA1 PO; +MYCOSTATIN100000 U/G TP; +NOVOLOG FLEX100 U/ML SQ; +NOVOLOGMIX70/30 SQ; +PREDNISONE10 MG PO; +ULTRAM 50MG TAB50 MG PO
== END ==
LOC: WCC 10:43
DX: L89.152 Pressure ulcer of sacral region, stage 2 (principal); L97.829 Non-pressure chronic ulcer of other part of left lower leg with unspecified severity; I87.2 Venous insufficiency (chronic) (peripheral)
CPT/HCPCS: 13919; 17716; 17717; 27516; A6207; A6212; G0463

== ENCOUNTER → 2017-05-28 | Outpatient (CLI) | payer MEDICARE, OTHER ==
[2017-05-28 13:32] LABS: CREATININE, serum 1.62 mg/dL (0.66-1.25); POTASSIUM 5.1 mmol/L (3.4-5.0)
== END ==
LOC: ZCOL.LAB 13:00
PROVIDERS: Internal Medicine
DX: N17.9 Acute kidney failure, unspecified (principal); R33.9 Retention of urine, unspecified

== ENCOUNTER → 2017-05-31 | Outpatient (REF) ==
[2017-05-31 13:43] LABS: CALCIUM 9.2 mg/dL (8.4-10.2); CREATININE, serum 1.57 mg/dL (0.66-1.25); POTASSIUM 5.1 mmol/L (3.4-5.0)
== END ==
LOC: ZCOL.LAB 13:06
PROVIDERS: Internal Medicine
DX: Z01.89 Encounter for other specified special examinations (principal)

== ENCOUNTER → 2017-06-03 | Outpatient (CLI) | payer MEDICARE, OTHER | LOC: ZCOL.LAB 14:53 | DX: I83.218 Varicose veins of right lower extremity with both ulcer of other part of lower extremity and inflammation (principal) ==

== ENCOUNTER → 2017-06-03 | Outpatient (CLI) | payer MEDICARE, OTHER | LOC: WCC 08:37 | DX: L89.152 Pressure ulcer of sacral region, stage 2 (principal); L97.829 Non-pressure chronic ulcer of other part of left lower leg with unspecified severity; I87.2 Venous insufficiency (chronic) (peripheral) | CPT/HCPCS: 13919; 17717; A6212; G0463 ==

== ENCOUNTER → 2017-06-10 | Outpatient (CLI) | payer MEDICARE, OTHER | LOC: WCC 12:35 | DX: L97.821 Non-pressure chronic ulcer of other part of left lower leg limited to breakdown of skin (principal); L97.811 Non-pressure chronic ulcer of other part of right lower leg limited to breakdown of skin; L98.491 Non-pressure chronic ulcer of skin of other sites limited to breakdown of skin; I87.2 Venous insufficiency (chronic) (peripheral) | CPT/HCPCS: 13919; 17717; A6212; G0463 ==

== ENCOUNTER → 2017-06-19 | Outpatient (CLI) | payer MEDICARE, OTHER | LOC: WCC 11:22 | DX: Z01.89 Encounter for other specified special examinations (principal) ==

== ENCOUNTER → 2017-06-30 | Outpatient (CLI) | payer MEDICARE, OTHER | LOC: WCC 09:56 | DX: L97.829 Non-pressure chronic ulcer of other part of left lower leg with unspecified severity (principal); L97.819 Non-pressure chronic ulcer of other part of right lower leg with unspecified severity; I87.2 Venous insufficiency (chronic) (peripheral) | CPT/HCPCS: 13919; 17717; 18867; A6209; A6212; G0463 ==

== ENCOUNTER → 2017-07-16 | Outpatient (CLI) | payer MEDICARE, OTHER | LOC: WCC 07-08 09:08 | DX: L97.819 Non-pressure chronic ulcer of other part of right lower leg with unspecified severity (principal); L97.829 Non-pressure chronic ulcer of other part of left lower leg with unspecified severity; I87.2 Venous insufficiency (chronic) (peripheral) | CPT/HCPCS: 13919; 18867; A6209; G0463 ==

== ENCOUNTER → 2017-07-27 | Outpatient (CLI) | payer MEDICARE, OTHER | LOC: WCC 08:21 | DX: L97.229 Non-pressure chronic ulcer of left calf with unspecified severity (principal); L97.219 Non-pressure chronic ulcer of right calf with unspecified severity; I87.2 Venous insufficiency (chronic) (peripheral) | CPT/HCPCS: G0463 ==

== ENCOUNTER → 2017-08-12 | Outpatient (CLI) | payer MEDICARE, OTHER ==
[~2017-08-12] MED LIST changes: +NORVASC 5MG5 MG/TAB PO
== END ==
LOC: WCC 08:29
DX: E11.621 Type 2 diabetes mellitus with foot ulcer (principal); L97.419 Non-pressure chronic ulcer of right heel and midfoot with unspecified severity; L97.229 Non-pressure chronic ulcer of left calf with unspecified severity; L97.219 Non-pressure chronic ulcer of right calf with unspecified severity; I87.2 Venous insufficiency (chronic) (peripheral)
CPT/HCPCS: 13919; 17717; A6212; G0463

== ENCOUNTER → 2017-08-19 | Outpatient (CLI) | payer MEDICARE, OTHER | LOC: WCC 08-18 10:02 | DX: L97.829 Non-pressure chronic ulcer of other part of left lower leg with unspecified severity (principal); L97.819 Non-pressure chronic ulcer of other part of right lower leg with unspecified severity; I87.2 Venous insufficiency (chronic) (peripheral); E11.621 Type 2 diabetes mellitus with foot ulcer; L97.419 Non-pressure chronic ulcer of right heel and midfoot with unspecified severity | CPT/HCPCS: 13919; 17717; 18867; A6209; A6212; G0463 ==

== ENCOUNTER 2017-08-26 10:24 | Emergency (ER) | payer MEDICARE, OTHER ==
[~2017-08-26] VITALS: Ht 167.6 cm; Wt 86.4 kg
[~2017-08-26 10:24] MED LIST changes: -NORVASC 5MG5 MG/TAB PO
[2017-08-26 10:32] VITALS: BP 161/76; TEMP 97
[2017-08-26 12:41] LABS: BASO % 0.4 % (0.0-2.0); EOS # 0.1 (0.0-0.7); EOS % 1.1 % (0-4.0); GRAN # 7.7 (1.4-6.5); GRAN % 80.9 % (42.2-75.2); LYMPH # 1.1 (1.2-3.4); LYMPH % 11.1 % (20.0-51.0); MEAN CELL VOLUME 82 fl (80.0-100.0); MEAN CORPUSCULAR HGB CONC 32 g/dl (33.0-37.0); MEAN PLATELET VOLUME 11.9 fl (7.4-10.4); MONO # 0.6 (0.1-0.6); MONO % 5.8 % (1.7-9.3); PLATELET COUNT 174 K/mm3 (130-400); RED BLOOD COUNT 4.27 M/mm3 (4.20-5.60); WHITE BLOOD COUNT 9.5 K/mm3 (4.8-10.8)
[2017-08-26 12:42] LABS: HEMATOCRIT 35.1 % (42.0-52.0); HEMOGLOBIN 11.1 g/dl (13.5-18.0); MEAN CORPUSCULAR HEMOGLOBIN 26 pg (27.0-31.0)
[2017-08-26 12:49] LABS: ADJUSTED CALCIUM 9.5 mg/dL (8.4-10.2); ALANINE AMINOTRANSFERASE 33 U/L (21-72); ALBUMIN 3.4 gm/dL (3.5-5.0); ALKALINE PHOSPHATASE 110 U/L (50-136); ANION GAP 8 mmol/L (7-16); BILIRUBIN,TOTAL 0.7 mg/dL (0.0-1.0); BLOOD UREA NITROGEN 45 mg/dL (9-20); C-REACTIVE PROTEIN 1.2 mg/dL (0.0-0.9); CARBON DIOXIDE 22 mmol/L (22-30); CHLORIDE 102 mmol/L (98-107); CREATININE, serum 1.41 mg/dL (0.66-1.25); GLUCOSE 206 mg/dL (74-106); POTASSIUM 4.9 mmol/L (3.4-5.0); SODIUM 132 mmol/L (137-145)
[2017-08-26 12:59] LABS: B-TYPE NATRIURETIC PEPTIDE 468 pg/mL (0-450)
[2017-08-26 13:00] LABS: TROPONIN-I < 0.012 ng/mL (0.000-0.034)
[2017-08-26 13:01] LABS: COLLECTION METHOD CLEAN CATCH
[2017-08-26 13:13] LABS: MUCOUS Present /lpf; PH 5 (5-8); SQUAMOUS EPITHELIAL None Seen /hpf; URINE APPEARANCE Clear; URINE BACTERIA None Seen /hpf; URINE BILIRUBIN Negative (NEGATIVE); URINE BLOOD Negative (NEGATIVE); URINE COLOR Yellow; URINE GLUCOSE 1+ (NEGATIVE); URINE KETONE Negative (NEGATIVE); URINE LEUKOCYTE ESTERASE Negative (NEGATIVE); URINE PROTEIN(semi-quant) Negative (NEGATIVE); URINE RBC None Seen /hpf; URINE UROBILINOGEN Negative (NEGATIVE); URINE WBC 0-2 /hpf
[2017-08-26] MEDS ORDERED: NORVASC 5MG5 MG/TAB PO (13:31)
[2017-08-26 16:23] VITALS: PULSE 80
== END 2017-08-26 16:27 ==
LOC: COL.ER 10:24
PROVIDERS: Emergency Medicine
DX: R53.1 Weakness (principal); M25.551 Pain in right hip; M25.561 Pain in right knee; E11.9 Type 2 diabetes mellitus without complications; I10 Essential (primary) hypertension; E03.9 Hypothyroidism, unspecified; G30.9 Alzheimer's disease, unspecified; F02.80 Dementia in other diseases classified elsewhere, unspecified severity, without behavioral disturbance, psychotic disturbance, mood disturbance, and anxiety; F32.9 Major depressive disorder, single episode, unspecified; N40.0 Benign prostatic hyperplasia without lower urinary tract symptoms; Z90.49 Acquired absence of other specified parts of digestive tract; Z98.890 Other specified postprocedural states; Z79.4 Long term (current) use of insulin; W06.XXXA Fall from bed, initial encounter

== ENCOUNTER 2017-08-28 07:30 | Emergency (ER) | payer MEDICARE, OTHER ==
[~2017-08-28] VITALS: Ht 167.6 cm; Wt 86.4 kg
[~2017-08-28 07:30] MED LIST changes: +NORVASC 5MG5 MG/TAB PO
[2017-08-28 07:35] VITALS: TEMP 100.2
[2017-08-28 08:08] LABS: BASO % 0.4 % (0.0-2.0); EOS # 0.2 (0.0-0.7); GRAN # 6.6 (1.4-6.5); GRAN % 70.1 % (42.2-75.2); HEMATOCRIT 34.6 % (42.0-52.0); HEMOGLOBIN 11.3 g/dl (13.5-18.0); LYMPH # 1.5 (1.2-3.4); LYMPH % 15.5 % (20.0-51.0); MEAN CELL VOLUME 81 fl (80.0-100.0); MEAN CORPUSCULAR HEMOGLOBIN 26 pg (27.0-31.0); MEAN CORPUSCULAR HGB CONC 33 g/dl (33.0-37.0); MEAN PLATELET VOLUME 11.6 fl (7.4-10.4); MONO # 1.1 (0.1-0.6); MONO % 11.5 % (1.7-9.3); PLATELET COUNT 162 K/mm3 (130-400); WHITE BLOOD COUNT 9.4 K/mm3 (4.8-10.8)
[2017-08-28 08:11] LABS: INR 1.2 (0.8-3.0); PROTHROMBIN TIME 12.8 SECONDS (9.7-12.8)
[2017-08-28 08:14] LABS: PARTIAL THROMBOPLASTIN TIME 30.3 SECONDS (26.0-37.0)
[2017-08-28 08:15] LABS: ADJUSTED CALCIUM 9.7 mg/dL (8.4-10.2); ALBUMIN 3.3 gm/dL (3.5-5.0); BILIRUBIN,TOTAL 1.1 mg/dL (0.0-1.0); CALCIUM 9.1 mg/dL (8.4-10.2); CREATININE, serum 1.5 mg/dL (0.66-1.25); POTASSIUM 4.7 mmol/L (3.4-5.0); TOTAL PROTEIN 6.8 gm/dL (6.4-8.2)
[2017-08-28 08:26] LABS: TROPONIN-I 0.015 ng/mL (0.000-0.034)
[2017-08-28 09:01] LABS: COLLECTION METHOD CLEAN CATCH
[2017-08-28 09:12] LABS: MUCOUS Present /lpf; PH 5 (5-8); SQUAMOUS EPITHELIAL None Seen /hpf; URINE APPEARANCE Clear; URINE BACTERIA None Seen /hpf; URINE BILIRUBIN Negative (NEGATIVE); URINE BLOOD 1+ (NEGATIVE); URINE COLOR Yellow; URINE GLUCOSE 1+ (NEGATIVE); URINE KETONE Negative (NEGATIVE); URINE LEUKOCYTE ESTERASE Negative (NEGATIVE); URINE PROTEIN(semi-quant) Negative (NEGATIVE); URINE RBC 0-2 /hpf; URINE UROBILINOGEN Negative (NEGATIVE)
[2017-08-28 10:29] VITALS: BP 157/93; PULSE 72
[2017-08-28 12:27] LABS: INFLUENZA A NEGATIVE; INFLUENZA B NEGATIVE
== END 2017-08-28 11:30 | disposition home or self-care (01) ==
LOC: COL.ER 07:30
PROVIDERS: Emergency Medicine
DX: E87.1 Hypo-osmolality and hyponatremia (principal); E86.0 Dehydration; R53.1 Weakness; E11.9 Type 2 diabetes mellitus without complications; I10 Essential (primary) hypertension; F32.9 Major depressive disorder, single episode, unspecified; N40.0 Benign prostatic hyperplasia without lower urinary tract symptoms; E03.9 Hypothyroidism, unspecified; F03.90 Unspecified dementia, unspecified severity, without behavioral disturbance, psychotic disturbance, mood disturbance, and anxiety; D64.9 Anemia, unspecified; Z79.4 Long term (current) use of insulin
CPT/HCPCS: J7030

== ENCOUNTER 2017-12-31 08:26 | Emergency (ER) | payer MEDICARE, OTHER ==
[~2017-12-31] VITALS: Ht 170.2 cm; Wt 88.6 kg
[2017-12-31 08:43] VITALS: BP 132/62; TEMP 98.2
[2017-12-31 10:24] VITALS: PULSE 99
== END 2017-12-31 10:24 | disposition home or self-care (01) ==
LOC: COL.ER 08:26
DX: S40.012A Contusion of left shoulder, initial encounter (principal); F03.90 Unspecified dementia, unspecified severity, without behavioral disturbance, psychotic disturbance, mood disturbance, and anxiety; Z79.52 Long term (current) use of systemic steroids; Z79.4 Long term (current) use of insulin; W01.0XXA Fall on same level from slipping, tripping and stumbling without subsequent striking against object, initial encounter; Y92.009 Unspecified place in unspecified non-institutional (private) residence as the place of occurrence of the external cause

== ENCOUNTER → 2018-05-07 | Outpatient (CLI) | payer MEDICARE, OTHER ==
[2018-05-07 18:26] LABS: BASO % 0.3 % (0.0-2.0); EOS % 0.3 % (0-4.0); GRAN # 8.5 (1.4-6.5); GRAN % 79.1 % (42.2-75.2); HEMATOCRIT 38.3 % (42.0-52.0); HEMOGLOBIN 12.4 g/dl (13.5-18.0); LYMPH # 1.5 (1.2-3.4); LYMPH % 13.5 % (20.0-51.0); MEAN CELL VOLUME 87 fl (80.0-100.0); MEAN CORPUSCULAR HEMOGLOBIN 28 pg (27.0-31.0); MEAN CORPUSCULAR HGB CONC 32 g/dl (33.0-37.0); MEAN PLATELET VOLUME 10.6 fl (7.4-10.4); MONO # 0.7 (0.1-0.6); PLATELET COUNT 184 K/mm3 (130-400); RED BLOOD COUNT 4.42 M/mm3 (4.20-5.60); REDCELL DISTRIBUTION WIDTH-CV 15.1 % (11.5-14.5)
[2018-05-07 18:40] LABS: ALBUMIN 2.8 gm/dL (3.5-5.0); BILIRUBIN,TOTAL 0.5 mg/dL (0.0-1.0); CREATININE, serum 1.53 mg/dL (0.66-1.25); TOTAL PROTEIN 5.6 gm/dL (6.4-8.2)
== END ==
LOC: ZCOL.LAB 18:07 → COL.LAB 18:07
PROVIDERS: Internal Medicine
DX: E11.8 Type 2 diabetes mellitus with unspecified complications (principal)

== ENCOUNTER → 2018-05-08 | Outpatient (CLI) | payer MEDICARE, OTHER ==
[2018-05-08 14:00] LABS: COLLECTION METHOD CLEAN CATCH
[2018-05-08 14:08] LABS: MUCOUS Present /lpf; PH 5 (5-8); URINE APPEARANCE Clear; URINE BACTERIA None Seen /hpf; URINE BILIRUBIN Negative (NEGATIVE); URINE BLOOD Negative (NEGATIVE); URINE COLOR Yellow; URINE GLUCOSE 3+ (NEGATIVE); URINE KETONE Negative (NEGATIVE); URINE LEUKOCYTE ESTERASE Trace (NEGATIVE); URINE NITRATE Negative (NEGATIVE); URINE PROTEIN(semi-quant) Negative (NEGATIVE); URINE UROBILINOGEN Negative (NEGATIVE)
== END ==
LOC: ZCOL.LAB 13:27
PROVIDERS: Nurse Practitioner Family
DX: Z01.89 Encounter for other specified special examinations (principal)

== ENCOUNTER → 2018-05-20 | Outpatient (CLI) | payer MEDICARE, OTHER ==
[~2018-05-20] MED LIST changes: +ALBUTEROL0.83 MG/ML IH; +ALMACONE 360 M360 ML PO; +ASPIRIN E.C. 8181 MG PO; +CLARITIN 1010 MG/TAB PO; +D-2000 90 MG-201 TAB PO; +DOXYCYCLINE HY100 MG PO; +DULCOLAX S10 MG/SUPP RC; +IMODIUM 2MG CAPS2 MG PO; +LEVEMIR FLEX100 U/ML SQ; +MILK OF MA400 MG/52; +NIACIN 64 MG-501 TA1; +NYSTATIN CREAM15 GM TP; +PREDNISONE 2.52.5 MG PO; +TIROSINT50 MC1 PO; +TYLENOL 325MG325 MG PO; +TYLENOL SU650 MG/SUP RC; +VESICARE 5MG5 MG PO; +VITAMIN B12 1541 TAB PO
== END ==
LOC: COL.VAS 08:42
DX: I50.9 Heart failure, unspecified (principal)

== ENCOUNTER 2018-07-03 11:08 | Observation (INO) | payer MEDICARE, OTHER ==
[~2018-07-03] VITALS: Ht 167.6 cm; Wt 90.8 kg
[2018-07-03] MEDS ORDERED: LASIX 20MG TABL20 MG PO (11:49)
[2018-07-03] MEDS ORDERED: LEVEMIR100 U/ML SQ (11:50)
[2018-07-03] MEDS ORDERED: PREDNISONE10 MG PO (11:54)
[2018-07-03] MEDS ORDERED: NOVOLOG 100U100 U/M1 SQ (12:00)
[2018-07-03 12:40] LABS: BASO # 0.1 (0.0-0.2); BASO % 0.5 % (0.0-2.0); EOS # 0.1 (0.0-0.7); EOS % 0.8 % (0-4.0); GRAN # 9.7 (1.4-6.5); GRAN % 73.9 % (42.2-75.2); HEMATOCRIT 44.4 % (42.0-52.0); HEMOGLOBIN 14.4 g/dl (13.5-18.0); LYMPH # 1.8 (1.2-3.4); LYMPH % 13.5 % (20.0-51.0); MEAN CELL VOLUME 87 fl (80.0-100.0); MEAN CORPUSCULAR HEMOGLOBIN 28 pg (27.0-31.0); MEAN CORPUSCULAR HGB CONC 32 g/dl (33.0-37.0); MEAN PLATELET VOLUME 9.6 fl (7.4-10.4); MONO # 1.4 (0.1-0.6); MONO % 10.4 % (1.7-9.3); PLATELET COUNT 186 K/mm3 (130-400); RED BLOOD COUNT 5.13 M/mm3 (4.20-5.60); REDCELL DISTRIBUTION WIDTH-CV 16.5 % (11.5-14.5)
[2018-07-03 13:25] LABS: ALBUMIN 3.1 gm/dL (3.5-5.0); BILIRUBIN,TOTAL 2.2 mg/dL (0.0-1.0); CALCIUM 9.3 mg/dL (8.4-10.2); CREATININE, serum 1.83 mg/dL (0.66-1.25); POTASSIUM 3.7 mmol/L (3.4-5.0); TOTAL PROTEIN 6.1 gm/dL (6.4-8.2)
[2018-07-03 13:34] LABS: COLLECTION METHOD CATHETER
[2018-07-03 13:37] LABS: TROPONIN-I 0.03 ng/mL (0.000-0.034)
[2018-07-03 13:44] LABS: MUCOUS Present /lpf; PH 5 (5-8); SQUAMOUS EPITHELIAL 0-2 /hpf; URINE APPEARANCE Clear; URINE BACTERIA None Seen /hpf; URINE BILIRUBIN Negative (NEGATIVE); URINE BLOOD Negative (NEGATIVE); URINE COLOR Yellow; URINE GLUCOSE 2+ (NEGATIVE); URINE KETONE Negative (NEGATIVE); URINE LEUKOCYTE ESTERASE Negative (NEGATIVE); URINE NITRATE Negative (NEGATIVE); URINE PROTEIN(semi-quant) Negative (NEGATIVE); URINE RBC 0-2 /hpf
[2018-07-03 15:59] VITALS: BP 142/72; PULSE 88; TEMP 98.5
[2018-07-03 19:22] VITALS: BP 131/86; PULSE 93; TEMP 98.2
[2018-07-03 23:31] VITALS: BP 153/89; PULSE 97; TEMP 97.7
[2018-07-04 03:57] VITALS: BP 127/70; PULSE 84; TEMP 98.2
[2018-07-04 06:45] LABS: ALBUMIN 2.7 gm/dL (3.5-5.0); BILIRUBIN,TOTAL 1.5 mg/dL (0.0-1.0); CALCIUM 8.5 mg/dL (8.4-10.2); CREATININE, serum 1.44 mg/dL (0.66-1.25); TOTAL PROTEIN 5.4 gm/dL (6.4-8.2)
[2018-07-04 07:58] VITALS: BP 178/96; PULSE 80; TEMP 98.5
[2018-07-04 13:13] VITALS: BP 178/96; PULSE 80; TEMP 98.5
[2018-07-04 13:32] VITALS: BP 153/84; PULSE 80; TEMP 97.6
== END 2018-07-04 14:10 | disposition home or self-care (01) ==
LOC: COL.ER 11:08 → MEDICAL 15:11
PROVIDERS: Emergency Medicine; Family Medicine
DX: R41.0 Disorientation, unspecified (principal); R53.83 Other fatigue; I10 Essential (primary) hypertension; E78.5 Hyperlipidemia, unspecified; G30.9 Alzheimer's disease, unspecified; F02.80 Dementia in other diseases classified elsewhere, unspecified severity, without behavioral disturbance, psychotic disturbance, mood disturbance, and anxiety; E03.9 Hypothyroidism, unspecified; L12.0 Bullous pemphigoid; Z83.3 Family history of diabetes mellitus
CPT/HCPCS: G0378; J1815; J7030; J7512

== ENCOUNTER 2018-09-01 09:07 | Inpatient (IN) | payer MEDICARE, OTHER ==
[~2018-09-01] VITALS: Ht 167.6 cm; Wt 96.4 kg
[~2018-09-01 09:07] MED LIST changes: +LASIX 20MG TABL20 MG PO; +NOVOLOG 100U100 U/M1 SQ
[2018-09-01 09:34] LABS: COLLECTION METHOD CATHETER
[2018-09-01 09:40] LABS: BASO # 0.1 (0.0-0.2); BASO % 0.3 % (0.0-2.0); EOS # 0.1 (0.0-0.7); EOS % 0.3 % (0-4.0); GRAN # 14.2 (1.4-6.5); GRAN % 77.8 % (42.2-75.2); HEMOGLOBIN 14.3 g/dl (13.5-18.0); LYMPH # 2.5 (1.2-3.4); LYMPH % 13.5 % (20.0-51.0); MEAN CELL VOLUME 89 fl (80.0-100.0); MEAN CORPUSCULAR HEMOGLOBIN 28 pg (27.0-31.0); MEAN CORPUSCULAR HGB CONC 31 g/dl (33.0-37.0); MEAN PLATELET VOLUME 11.8 fl (7.4-10.4); MONO # 1.3 (0.1-0.6); MONO % 7.3 % (1.7-9.3); PLATELET COUNT 230 K/mm3 (130-400); RED BLOOD COUNT 5.19 M/mm3 (4.20-5.60); REDCELL DISTRIBUTION WIDTH-CV 16.4 % (11.5-14.5)
[2018-09-01] MEDS ORDERED: HYCET SOLN (09:45)
[2018-09-01 09:49] LABS: MUCOUS Present /lpf; PH 6 (5-8); SQUAMOUS EPITHELIAL 0-2 /hpf; URINE APPEARANCE Clear; URINE BACTERIA None Seen /hpf; URINE BILIRUBIN Negative (NEGATIVE); URINE BLOOD Negative (NEGATIVE); URINE COLOR Yellow; URINE GLUCOSE 1+ (NEGATIVE); URINE KETONE Negative (NEGATIVE); URINE LEUKOCYTE ESTERASE Negative (NEGATIVE); URINE NITRATE Negative (NEGATIVE); URINE PROTEIN(semi-quant) Negative (NEGATIVE); URINE RBC 0-2 /hpf; URINE UROBILINOGEN >=4.0 mg/dL (NEGATIVE)
[2018-09-01 09:58] LABS: ALBUMIN 2.8 gm/dL (3.5-5.0); BILIRUBIN,TOTAL 1.2 mg/dL (0.0-1.0); C-REACTIVE PROTEIN 7.4 mg/dL (0.0-0.9); CREATININE, serum 1.34 mg/dL (0.66-1.25); PHOSPHOROUS 4.1 mg/dL (2.5-4.5); POTASSIUM 4.7 mmol/L (3.4-5.0); TOTAL PROTEIN 5.8 gm/dL (6.4-8.2)
[2018-09-01] MEDS ORDERED: MUCINEX 60600 MG/TA1 PO (10:02)
[2018-09-01] MEDS ORDERED: CLARITIN 1010 MG/TAB (10:03)
[2018-09-01] MEDS ORDERED: NORCOELIX PO (14:42)
[2018-09-01] MEDS ORDERED: HYCET SOLN PO (14:57)
[2018-09-01 17:30] VITALS: BP 124/68; PULSE 82; TEMP 97.5
[2018-09-01 20:55] VITALS: BP 115/72; PULSE 86; TEMP 97.6
[2018-09-02 04:40] VITALS: BP 107/70; PULSE 83; TEMP 96.7
[2018-09-02 06:53] LABS: BASO % 0.2 % (0.0-2.0); EOS % 0.1 % (0-4.0); GRAN # 13.5 (1.4-6.5); GRAN % 83.1 % (42.2-75.2); HEMATOCRIT 38.4 % (42.0-52.0); LYMPH # 1.8 (1.2-3.4); LYMPH % 10.8 % (20.0-51.0); MEAN CELL VOLUME 91 fl (80.0-100.0); MEAN CORPUSCULAR HEMOGLOBIN 28 pg (27.0-31.0); MEAN CORPUSCULAR HGB CONC 31 g/dl (33.0-37.0); MEAN PLATELET VOLUME 11.6 fl (7.4-10.4); MONO # 0.8 (0.1-0.6); MONO % 4.9 % (1.7-9.3); PLATELET COUNT 203 K/mm3 (130-400); RED BLOOD COUNT 4.24 M/mm3 (4.20-5.60); REDCELL DISTRIBUTION WIDTH-CV 16.6 % (11.5-14.5)
[2018-09-02 07:09] LABS: HEMOGLOBIN 11.9 g/dl (13.5-18.0)
[2018-09-02 07:10] LABS: ALBUMIN 2.2 gm/dL (3.5-5.0); BILIRUBIN,TOTAL 1.1 mg/dL (0.0-1.0); CALCIUM 8.2 mg/dL (8.4-10.2); CREATININE, serum 1.21 mg/dL (0.66-1.25); POTASSIUM 4.3 mmol/L (3.4-5.0); TOTAL PROTEIN 5.1 gm/dL (6.4-8.2)
[2018-09-02 07:46] VITALS: BP 128/93; PULSE 81; TEMP 98.1
[2018-09-02 11:20] VITALS: BP 127/65; PULSE 77; TEMP 97.8
[2018-09-02 15:29] VITALS: BP 120/61; PULSE 83; TEMP 97.7
[2018-09-02 19:45] VITALS: BP 131/59; PULSE 75
[2018-09-02 23:21] VITALS: BP 136/60; PULSE 78
[2018-09-03 03:10] VITALS: BP 146/97; PULSE 75; TEMP 97
[2018-09-03 06:23] LABS: BASO % 0.1 % (0.0-2.0); EOS % 0.1 % (0-4.0); GRAN # 11.8 (1.4-6.5); GRAN % 87.7 % (42.2-75.2); HEMOGLOBIN 11.3 g/dl (13.5-18.0); LYMPH % 7.7 % (20.0-51.0); MEAN CELL VOLUME 91 fl (80.0-100.0); MEAN CORPUSCULAR HEMOGLOBIN 28 pg (27.0-31.0); MEAN CORPUSCULAR HGB CONC 31 g/dl (33.0-37.0); MEAN PLATELET VOLUME 11.9 fl (7.4-10.4); MONO # 0.5 (0.1-0.6); MONO % 3.7 % (1.7-9.3); PLATELET COUNT 200 K/mm3 (130-400); RED BLOOD COUNT 4.03 M/mm3 (4.20-5.60); REDCELL DISTRIBUTION WIDTH-CV 16.4 % (11.5-14.5)
[2018-09-03 06:27] LABS: HEMATOCRIT 36.5 % (42.0-52.0)
[2018-09-03 06:33] LABS: CALCIUM 8.2 mg/dL (8.4-10.2); CREATININE, serum 1.16 mg/dL (0.66-1.25); POTASSIUM 3.4 mmol/L (3.4-5.0)
[2018-09-03 07:41] VITALS: BP 132/65; PULSE 66; TEMP 98.2
[2018-09-03 11:48] VITALS: BP 167/67; PULSE 69; TEMP 96.7
[2018-09-03 16:42] VITALS: BP 168/74; PULSE 72; TEMP 97.4
[2018-09-03 19:30] VITALS: BP 133/67; PULSE 74; TEMP 97.2
[2018-09-03 23:05] VITALS: BP 144/59; PULSE 63
[2018-09-04 03:18] VITALS: BP 147/62; PULSE 59; TEMP 96.3
[2018-09-04 05:59] LABS: BASO % 0.1 % (0.0-2.0); EOS % 0.1 % (0-4.0); GRAN # 10.1 (1.4-6.5); GRAN % 88.3 % (42.2-75.2); HEMOGLOBIN 10.5 g/dl (13.5-18.0); LYMPH # 0.8 (1.2-3.4); MEAN CELL VOLUME 88 fl (80.0-100.0); MEAN CORPUSCULAR HEMOGLOBIN 28 pg (27.0-31.0); MEAN CORPUSCULAR HGB CONC 31 g/dl (33.0-37.0); MEAN PLATELET VOLUME 11.4 fl (7.4-10.4); MONO # 0.4 (0.1-0.6); MONO % 3.7 % (1.7-9.3); PLATELET COUNT 205 K/mm3 (130-400); RED BLOOD COUNT 3.78 M/mm3 (4.20-5.60)
[2018-09-04 06:08] LABS: CALCIUM 8.1 mg/dL (8.4-10.2); CREATININE, serum 0.82 mg/dL (0.66-1.25); POTASSIUM 3.1 mmol/L (3.4-5.0)
[2018-09-04 06:11] LABS: HEMATOCRIT 33.4 % (42.0-52.0)
[2018-09-04 07:37] VITALS: BP 138/60; PULSE 56; TEMP 97.5
[2018-09-04 11:52] VITALS: BP 119/69; PULSE 97; TEMP 97.5
[2018-09-04 16:56] VITALS: BP 120/62; PULSE 76; TEMP 97.1
[2018-09-04 19:35] VITALS: BP 121/48; PULSE 75; TEMP 97.4
[2018-09-04 23:15] VITALS: BP 129/73; PULSE 70
[2018-09-05 03:22] VITALS: BP 149/76; PULSE 70
[2018-09-05 05:57] LABS: HEMOGLOBIN 10.9 g/dl (13.5-18.0); MEAN CELL VOLUME 88 fl (80.0-100.0); MEAN CORPUSCULAR HEMOGLOBIN 28 pg (27.0-31.0); MEAN CORPUSCULAR HGB CONC 32 g/dl (33.0-37.0); MEAN PLATELET VOLUME 11.5 fl (7.4-10.4); PLATELET COUNT 208 K/mm3 (130-400); RED BLOOD COUNT 3.94 M/mm3 (4.20-5.60); REDCELL DISTRIBUTION WIDTH-CV 15.9 % (11.5-14.5)
[2018-09-05 06:12] LABS: CALCIUM 8.1 mg/dL (8.4-10.2); CREATININE, serum 0.85 mg/dL (0.66-1.25); POTASSIUM 3.8 mmol/L (3.4-5.0)
[2018-09-05 06:24] LABS: HEMATOCRIT 34.6 % (42.0-52.0)
[2018-09-05 07:09] VITALS: BP 155/83; PULSE 72; TEMP 98.2
[2018-09-05 08:50] LABS: BAND 9 % (0-10); LYMPHOCYTE 9 % (20.0-51.0); NEUTROPHILS 76 % (42.0-75.2); PLATELET ESTIMATE NORMAL (NORMAL)
[2018-09-05 11:02] VITALS: BP 163/75; PULSE 76; TEMP 97.9
[2018-09-05] MEDS ORDERED: AMOXICILLIN 8751 TAB PO (12:06)
[2018-09-05 12:30] VITALS: BP 163/75; PULSE 76; TEMP 97.9
[2018-09-05 12:56] VITALS: BP 163/75; PULSE 76; TEMP 97.9
== END 2018-09-05 13:30 | DRG 872 ==
LOC: COL.ER 09:07 → MEDICAL 12:21
PROVIDERS: Emergency Medicine; Hospitalist; Physician Assistant
PROC: 02HV33Z Insertion of Infusion Device into Superior Vena Cava, Percutaneous Approach (ICD-10-PCS; principal; 2018-09-03)
DX: A41.9 Sepsis, unspecified organism (principal); K57.12 Diverticulitis of small intestine without perforation or abscess without bleeding; L12.0 Bullous pemphigoid; E87.0 Hyperosmolality and hypernatremia; G93.40 Encephalopathy, unspecified; Z66 Do not resuscitate; Z23 Encounter for immunization; I10 Essential (primary) hypertension; E11.42 Type 2 diabetes mellitus with diabetic polyneuropathy; E78.5 Hyperlipidemia, unspecified; G30.9 Alzheimer's disease, unspecified; F02.80 Dementia in other diseases classified elsewhere, unspecified severity, without behavioral disturbance, psychotic disturbance, mood disturbance, and anxiety; Z79.4 Long term (current) use of insulin; Z87.891 Personal history of nicotine dependence; L89.152 Pressure ulcer of sacral region, stage 2; E11.649 Type 2 diabetes mellitus with hypoglycemia without coma; E87.8 Other disorders of electrolyte and fluid balance, not elsewhere classified
CPT/HCPCS: 99223-AI; 99232-AI; 99233-AI; C1751; C1894; J1650; J1720; J1815; J2543; J3480; J7030; J7512